=== PATIENT | male | born 1940 | race Hispanic/Latino ===

== ENCOUNTER 2016-12-18 06:07 | Observation (INO) | payer MEDICARE ==
--- NOTE | 2016-12-17 14:53 | Admit Criteria Form ---
Admission Criteria Documentation: AMBULATORY SURGERY EXCEPTION CRITERIA Ambulatory Surgery Exception Criteria ( Place 'X' for any and all applicable criteria): Surgery or procedure performed on ambulatory basis may require inpatient stay for[A] ANY ONE of the following(1)(2)(3)(4)(5)(6)(7)(8)(9): [X] I. A preoperative situation, condition, or finding that warrants inpatient stay as indicated by ANY ONE of the following: [X] a) Inpatient care needed because of severity of a disease or condition rather than the surgery (eg, severe cardiac or respiratory disease, severe infection) (15) (16 ) (17) (18) [] b) Emergent procedure (eg, angioplasty for acute ischemia)(19) [] c) Complex surgical approach or situation as indicated by ANY ONE of the following(3): [] i) Open approach needed instead of usual endoscopic, transcatheter, or other less invasive procedure [] ii) Difficult approach because of previous operation [] iii) Airway monitoring required after open neck procedures(20)(21) [] iv) Large mass requiring unusually extensive dissection [] v) Additional complicating feature requiring inpatient care (eg, drain management)(22(23): [X] d) Major surgery in a pt with high anesthetic risk as indicated by ANY ONE of the following (2)(3)(5)(7)(8): [X] i) ASA risk class III or higher (severe systemic disease impairing function) [D] [] ii) Advanced age (eg, older than 85 years)(14)(24) [] iii) Symptomatic heart failure(25) [] iv) Symptomatic asthma or COPD(8)(21) [] v) Morbid obesity with hemodynamic or respiratory problems(20)( 21)(26)(27) [] vi) Obstructive sleep apnea(20)(21) [] vii) Former premature infants who are younger than 60 weeks [] viii) High risk for severe postoperative abnormalities (eg, severe postoperative hypocalcemia after parathyroidectomy for severe hyperparathyroidism)(27)( 28) [] ix) Unstable angina(25) [] e) Drug-related risk requiring inpatient stay as indicated by ANY ONE of the following(5)(10)(14)(32)(33) [] i) Procedure requires discontinuing drugs or other therapy (eg , antiarrhythmic medication, antiseizure medication), which necessitates inpatient observation or treatment.(18)(31) [] ii) Major surgery and high risk drug use as indicated by ANY ONE of the following: [] 1) Active abuse of cocaine or similar drug [] 2) Monoamine oxidase inhibitor use [] 3) Other drug identified as posing risk [] f) Inadequate outpatient care situation as indicated by ANY ONE of the following(5)(10)(14)(32)(33) [] i) Patient lives remote from medical facility and procedure has urgent complication potential, and temporary nearby residence cannot be arranged [] ii) Patient will have postprocedure incapacitation and inadequate assistance at home, or alternative level of care cannot be arranged. [] iii) Patient will have long general anesthesia or procedure side effect resolution time, and competent person to stay with patient on first postoperative night at home or alternative level of care cannot be arranged. []iv) Other inadequate outpatient situation that cannot be handled by other means [] II. A perioperative event, condition, or finding that warrants inpatient stay as indicated by ANY ONE of the following (1)(2)(3): [] a) Inadequate physiologic recovery: cardiovascular, respiratory, or hemodynamic status not normal or near preoperative baseline(18) [] b) Hemodynamic instability [] c) Patient not alert with near normal or baseline mental status [] d) Temperature not normal or as expected and not appropriate for outpatient treatment of condition [] e) Ambulatory or appropriate activity level status not yet achieved post procedure [E](34)(35)(36) [] f) Operative site not appropriate (eg, unexpected or excessive drainage or bleeding) [] g) Postoperative effects not resolved or adequately managed (eg, significant pain or vomiting not appropriate for outpatient or next level of care)(10)(12) [] h) Complicating features requiring inpatient care as indicated by ANY ONE of the following(37): [] i) Severe complications of procedure (eg, bowel injury, airway compromise, vascular injury,severe hemorrhage) [] ii) Extensive (eg, dissection far beyond usual scope of procedure ) or prolonged (eg, 120 minutes beyond usual) surgery needed requiring inpatient postoperative care [] iii) Conversion to an open or complex procedure that requires inpatient care (eg, open vs laparoscopic cholecystectomy, abdominal vs vaginal hysterectomy)(38) [] iv) Comorbid condition or test result identified during or post procedure that requires inpatient care (7) [] v) Malignant hyperthermia(30) [] vi) Other complicating feature requiring inpatient care(22)(23) Inpatient stay may be needed until ALL of the following are present (1)(2)(3)(4) (5)(6)(10)(14)(33)(40): []a) Physiologic recovery: cardiovascular, respiratory, and hemodynamic status normal or near preoperative baseline []b) Hemodynamic stability []c) Patient alert, with near normal or baseline mental status []d) Temperature appropriate: patient afebrile or temperature appropriate for outpt treatment of condition []e) Activity level appropriate: ambulatory or appropriate activity level post procedure []f) Operative site appropriate as indicated by ALL of the following: []i) Site dry or with expected drainage []ii) Any blood noted is as expected for procedure. []g) Postoperative effects resolved or managed as indicated by ALL of the following: []i) Pain management appropriate for outpatient (or next level of) care(10) []ii) Minimal nausea and vomiting: if present, successfully treated with oral medication(12) []iii) Headache, dizziness, or drowsiness (if present) are mild. []h) Voiding status acceptable as indicated by ANY ONE of the following: []i) Voiding spontaneously []ii) No voiding but instructions given for follow-up in 6 to 8 hours []iii) Urinary catheter in place, and instructions given for follow-up []i) Complicating features requiring inpatient care manageable at a lower level of care(37) []j) Comorbid conditions manageable at a lower level of care(37) The original [employer] content created by [employer] has been revised. The portions of the content which have been revised are identified through the use of italic text or in bold, and [facility] has neither reviewed nor approved the modified material. All other unmodified content is copyright [employer]. Please see references footnoted in the original [employer] edition 2016 Admission Criteria Met: Yes
[~2016-12-18 06:07] MED LIST: ANCEF/STERILE WATER 2 GM/20 ML 2 GM/20 ML SYRINGE IV SCH; NACL 0.9% 1000 ML 1,000 ML IV SCH; PEPCID PO NR
--- NOTE | 2016-12-18 06:44 | Anesthesia Consultation ---
Anesthesia Consult and Med Hx Date of service: 12/18/16 - Airway Anesthetic Teeth Evaluation: Good ROM Head & Neck: Adequate Mental/Hyoid Distance: Adequate Mallampati Class: Class II Intubation Access Assessment: Good - Pulmonary Exam CTA: Yes - Cardiac Exam Cardiac Exam: RRR - Pre-Operative Health Status ASA Pre-Surgery Classification: ASA3 Proposed Anesthetic Plan: General - Cardiovascular System Hx Hypertension: Yes (10 YRS) - Endocrine Hx Non-Insulin Dependent Diabetes: Yes Hx Hypothyroidism: Yes (10YRS)
--- NOTE | 2016-12-18 06:45 | Anesthesia Day of Surgery ---
Anesthesia Day of Surgery - Day of Surgery Patient Examined: Yes Patient H&P Reviewed: Yes Patient is NPO: Yes
[2016-12-18] MEDS ORDERED: VERSED IV NR (07:00)
[2016-12-18] MEDS ORDERED: NACL BACTERIOSTATIC INFILTRATI ONE (07:00)
[2016-12-18] MEDS ORDERED: DIPRIVAN 10 MG/ML IV ONE (07:19)
[2016-12-18] MEDS ORDERED: SUBLIMAZE ONE (07:20)
[2016-12-18] MEDS ORDERED: NACL 0.9% IR ONE (07:29)
[2016-12-18] MEDS ORDERED: MARCAINE-EPI 0.5%-1:200,000 INFILTRATI ONE (07:29)
[2016-12-18] MEDS ORDERED: ZOFRAN IV PRN ×2 (07:31→11:30)
[2016-12-18] MEDS ORDERED: ZEMURON IV ONE (07:45)
[2016-12-18] MEDS ORDERED: MARCAINE-EPI 0.25%-1:200,000 INFILTRATI ONE (07:52)
[2016-12-18] MEDS ORDERED: XYLOCAINE MPF 2% ONE (08:14)
[2016-12-18] MEDS ORDERED: NEOSTIGMINE ONE (08:18)
[2016-12-18] MEDS ORDERED: ROBINUL ONE (08:18)
[2016-12-18] MEDS ORDERED: ZOFRAN ONE (08:18)
[2016-12-18] MEDS: DILAUDID IV PRN ×5 (09:28→10:15)
[2016-12-18] MEDS ORDERED: DILAUDID ONE (09:54)
--- NOTE | 2016-12-18 10:37 | Operative Report ---
PREOPERATIVE DIAGNOSIS: Large right scrotal hernia. POSTOPERATIVE DIAGNOSIS: Large right scrotal hernia. PROCEDURE: Open right inguinal hernia repair with mesh. SURGEON: Maxime Simpson MD. ANESTHESIA: General. ESTIMATED BLOOD LOSS: Minimal. DRAINS: None. COMPLICATIONS: None. DESCRIPTION OF PROCEDURE: The patient was taken to the operating room, prepped and draped in the usual sterile fashion. Incision was made using his landmarks anterior superior iliac spine and pubic tubercle. Incision was carried down to the external oblique fascia. External oblique fascia was transected down to the external inguinal ring. Cord was then isolated with a [place] drain at the level of the pubic tubercle. Dissection was then carried out along the area. A large indirect hernia sac was identified. The sac was opened and dissected free from surrounding cord structures. Cord sac was then high ligated with two 2-0 silk ties. Lipoma of the cord was also identified. This was dissected free and portions also removed the specimen. Area was irrigated copiously and dried. Checked for hemostasis and noted to be dry. All cord structures and ilioinguinal nerves were noted to be intact. A keyhole Marlex mesh was then used to reconstruct the inguinal canal floor. The mesh was tacked to the area of the pubic tubercle. Surgilon suture was then used to secure the mesh medially to the transversalis fascia and laterally to the iliopubic tract. The area was once again irrigated copiously and dry. Once again checked for hemostasis and noted to be dry. Again, all cord structures were intact. The external oblique fascia was then closed over the cord with running 3-0 Vicryl suture. Subcutaneous tissues irrigated and skin closed with mehnaz. A 0.25% Marcaine with epinephrine was infiltrated over the fascia, subcutaneous, and skin for postoperative pain relief. Ilioinguinal nerve block was also performed. Scrotum was then palpated postoperative to assure ____ testicles properly in the scrotal sac, which it was. The patient tolerated the procedure well and left the OR in stable condition. JOB# [id number] LEW/KENZIE
[2016-12-18] MEDS ORDERED: PERCOCET 5/325 PO PRN (11:30)
[2016-12-18] MEDS: MORPHINE IV PRN ×2 (13:00→20:10)
[2016-12-18] MEDS: D5W/0.45% NACL/KCL 30 MEQ 30 MEQ/1,000 ML BAG IV SCH (13:50)
--- NOTE | 2016-12-18 13:56 | Post Anesthesia Evaluation ---
- Post Anesthesia Evaluation Patient Participated: Yes Airway Patent: Yes Stable Respiratory Function: Yes Nausea/Vomiting: No Temp > 96.8F: Yes Pain Manageable: Yes Adequeate Hydration: Yes Anesthesia Complications: No Block Receding Appropriately: Not Applicable Patient on Ventilator: No
[2016-12-18] MEDS: ANCEF/NS 1 GM/50 ML 1 GM/50 ML BAG IV SCH (16:52)
[2016-12-19] MEDS: ANCEF/NS 1 GM/50 ML 1 GM/50 ML BAG IV SCH (00:32)
[2016-12-19] MEDS: D5W/0.45% NACL/KCL 30 MEQ 30 MEQ/1,000 ML BAG IV SCH (01:31)
[2016-12-19 05:32] LABS: Basophils % (Auto) 0.4 % (0.0-1.8); Eosinophils % (Auto) 0.5 % (0.0-4.3); Hematocrit 42.2 % (35.5-45.6); Hemoglobin 14.1 gm/dl (11.8-15.2); Mean Corpuscular HGB Conc 33 % (32-34); Mean Corpuscular Hemoglobin 31 pg (28-32); Mean Corpuscular Volume 92 fl (84-94); Platelet Count 173 K/mm3 (140-440); Red Blood Count 4.59 M/mm3 (3.65-5.03); Red Cell Distribution Width 14.1 % (13.2-15.2); White Blood Count 9.9 K/mm3 (4.5-11.0)
[2016-12-19 05:49] VITALS: BP 133/72
[2016-12-19] MEDS ORDERED: D50W (25GM) IV PRN (11:00)
--- NOTE | 2016-12-19 11:06 | Consultation ---
History of Present Illness - Reason for Consult Consult date: 12/19/16 medical management Requesting physician: IMTIAZ MONTESINOS - History of Present Illness 76-year-old man who is postop from right scrotal hernia repair Medications and Allergies Allergies Allergy/AdvReac Type Severity Reaction Status Date / Time No Known Allergies Allergy Verified 12/18/16 06:56 Home Medications Medication Instructions Recorded Confirmed Last Taken Type Glimepiride [Glimepiride] 4 mg PO QDAY 12/16/16 12/16/16 12/17/16 History Levothyroxine [Synthroid] 50 mcg PO QAM 12/16/16 12/16/16 12/17/16 History Losartan [Cozaar] 25 mg PO QDAY 12/16/16 12/16/16 12/17/16 History Metformin HCl [Glucophage] 1,000 mg PO BID 12/16/16 12/16/16 12/17/16 History Simvastatin [Simvastatin] 20 mg PO QDAY 12/16/16 12/16/16 12/17/16 History HYDROcodone/APAP 5-325 [[place] 1 each PO Q4HR PRN #30 tablet 12/19/16 Unknown Rx 5/325] Active Meds: Active Medications Glimepiride (Amaryl) 4 mg PO QDAY ALETHA Sodium Chloride (Nacl 0.9% 1000 Ml) 1,000 mls @ 75 mls/hr IV DIRECT ALETHA Last Admin: 12/18/16 07:15 Dose: 75 mls/hr Potassium Chloride/Dextrose/Sod Cl (D5w/0.45% Nacl/Kcl 30 Meq) 30 meq in 1,000 mls @ 100 mls/hr IV DIRECT ALETHA Last Admin: 12/19/16 01:31 Dose: 100 mls/hr Levothyroxine Sodium (Synthroid) 50 mcg PO QAM [facility] Losartan Potassium (Cozaar) 25 mg PO QDAY [facility] Miscellaneous Medication (Metformin Hcl [Glucophage]) 1,000 mg PO BID [facility] Morphine Sulfate (Morphine) 2 mg IV Q4H PRN PRN Reason: Pain, Moderate (4-6) Last Admin: 12/18/16 20:10 Dose: 2 mg Ondansetron HCl (Zofran) 4 mg IV Q4H PRN PRN Reason: Nausea And Vomiting Oxycodone/Acetaminophen (Percocet 5/325) 1 tab PO Q4H PRN PRN Reason: Pain, Moderate (4-6) Simvastatin (Zocor) 20 mg PO QDAY ALETHA Review of Systems All systems: negative (some mild postop pain) Exam - Constitutional Vitals: Temp Pulse Resp BP Pulse Ox 98.6 F 69 16 133/72 99 12/19/16 05:00 12/19/16 05:00 12/19/16 05:00 12/19/16 05:00 12/18/16 23:00 General appearance: Present: no acute distress, well-nourished - EENT Eyes: Present: PERRL ENT: hearing intact, clear oral mucosa - Neck Neck: Present: supple, normal ROM - Respiratory Respiratory effort: normal Respiratory: bilateral: CTA - Cardiovascular Heart Sounds: Present: S1 & S2. Absent: rub, click - Extremities Extremities: pulses symmetrical, No edema Peripheral Pulses: within normal limits - Abdominal General gastrointestinal: Present: soft, non-tender, non-distended, normal bowel sounds Male genitourinary: Present: normal - Integumentary Integumentary: Present: clear, warm, dry - Musculoskeletal Musculoskeletal: gait normal, strength equal bilaterally - Psychiatric Psychiatric: appropriate mood/affect, intact judgment & insight - Neurologic Neurologic: CNII-XII intact, moves all extremities Results - Labs CBC & Chem 7: 12/19/16 05:03 Labs: Abnormal lab results 12/18/16 12/18/16 12/19/16 Range/Units 16:37 21:15 05:03 Lymph % (Auto) 13.2 L (13.4-35.0) % [place] % (Auto) 9.6 H (0.0-7.3) % [place] # 0.9 H (0.0-0.8) K/mm3 Seg Neutrophils % 76.3 H (40.0-70.0) % POC Glucose 169 H 174 H (70-105) Assessment and Plan 76-year-old male with a past medical history of hypertension and diabetes and hypothyroidism who is postop from right scrotal hernia repair. Consulted for medical management 1.Hypertension Resume home medications 2.Diabetes Resume home medications along with sliding scale insulin. medically stable for discharge
[2016-12-19] MEDS ORDERED: NOVOLOG SUB-Q SCH (11:30)
--- NOTE | 2016-12-19 12:02 | Progress Note ---
Assessment and Plan POD # 1 Pt feeling well without compl. charley diet. voided well Op site clean & dry. Scrotum - edema or tenderness surgically stable will d/c if medically cleared rto Fri Selected Entries 12/19/16 05:00 Temperature 98.6 F Pulse Rate [ 69 Apical] Respiratory 16 Rate Blood Pressure 133/72 [Right Arm] Laboratory Tests 12/18/16 12/19/16 21:15 05:03 WBC 9.9 Hgb 14.1 Hct 42.2 POC Glucose 174 H Objective Vital Signs - 12hr 12/19/16 05:00 Temperature 98.6 F Pulse Rate [ 69 Apical] Respiratory 16 Rate Blood Pressure 133/72 [Right Arm] - Labs 12/19/16 05:03
--- NOTE | 2016-12-19 12:04 | Discharge Summary ---
Short Stay Discharge Plan Activity: other (December d/c if medically cleared. no lifting over 5 lbs x 3 wks. scrotal support x 3 days. surfak 1 po qam x 3. aleve 1 po q 6-8 hrs prn for breakthrough pain. keep dressings dry x 5 days) Weight Bearing Status: Partial Weight Bearing Diet: regular Wound: keep clean and dry Follow up with: IMTIAZ MONTESINOS MD [Staff Physician] - 7 Days
[2016-12-19] MEDS ORDERED: GLUCOPHAGE PO SCH (17:00)
[2016-12-19] MEDS ORDERED: NON-FORMULARY (Metformin Hcl [Glucophage] 1,000 MG) PO SCH (22:00)
[2016-12-20] MEDS ORDERED: ZOCOR PO SCH (10:00)
[2016-12-20] MEDS ORDERED: AMARYL PO SCH (10:00)
[2016-12-20] MEDS ORDERED: COZAAR PO SCH (10:00)
[2016-12-20] MEDS ORDERED: SYNTHROID PO SCH (10:00)
== END 2016-12-19 16:00 | disposition home or self-care (01) ==
LOC: OR 06:07 → 2B-SURG 08:57
PROVIDERS: ADMIT Surgery; ATTEND Surgery
DX: K40.90 Unilateral inguinal hernia, without obstruction or gangrene, not specified as recurrent (principal); E11.9 Type 2 diabetes mellitus without complications; Z79.84 Long term (current) use of oral hypoglycemic drugs; E78.5 Hyperlipidemia, unspecified; I10 Essential (primary) hypertension; E03.9 Hypothyroidism, unspecified; R41.3 Other amnesia; I83.90 Asymptomatic varicose veins of unspecified lower extremity; N40.1 Benign prostatic hyperplasia with lower urinary tract symptoms
CPT/HCPCS: 36415; 49505; 82962; 85025; 88302; 88304; 96365; 96375; 96376; C1781; G0378; J0690; J1170; J2250; J2270; J2405; J2704; J2710; J3010; J7030; J1815